=== PATIENT | female | born 1975 | race Caucasian/White ===

== ENCOUNTER → 2017-10-07 | Outpatient (REF) ==
[~2017-10-07] MED LIST: COLA100C5 PO; IBUP60TA PO; PERCOCET PO; VITAPRTA PO
[2017-10-07 13:53] LABS: SYNOVIAL FLUID COLOR YELLOW (YELLOW)
[2017-10-07 17:15] LABS: BF MONONUCLEAR CELL % 17.6 % (0-0); BF POLYMORPHONUCLEAR CELL % 82.4 % (0-0); RBC BODY FLUID 5 10^3/uL (<2); WBC BODY FLUID 6897 /uL (0-10)
[2017-10-07 17:16] LABS: BF DIFF IF INDICATED? YES (NO)
[2017-10-07 17:19] LABS: CRYSTALS, BODY FLUID NONE SEEN (NONE SEEN)
== END ==
LOC: M LAB REF 13:36
PROVIDERS: ATTEND Psychiatry & Neurology Neurology
DX: M25.561 Pain in right knee (principal)

== ENCOUNTER → 2017-11-20 | Outpatient (REF) ==
[2017-11-20 12:43] LABS: CRYSTALS, BODY FLUID NONE SEEN (NONE SEEN)
[2017-11-20 13:24] LABS: WBC BODY FLUID 15533 /uL (0-10)
[2017-11-20 13:25] LABS: APPEARANCE, BODY FLUID CLOUDY (CLEAR); BF DIFF IF INDICATED? YES (NO); BF MONONUCLEAR CELL % 23.6 % (0-0); BF POLYMORPHONUCLEAR CELL % 76.4 % (0-0); RBC BODY FLUID 40 10^3/uL (<2); SYNOVIAL FLUID COLOR RED (YELLOW)
== END ==
LOC: M LAB REF 12:01
DX: M65.9 Synovitis and tenosynovitis, unspecified (principal)

== ENCOUNTER → 2018-03-26 | Outpatient (CLI) | payer OTHER ==
[~2018-03-26] MED LIST changes: -COLA100C5 PO; -IBUP60TA PO; -PERCOCET PO; +PROHANCE 279.3MG/ML 15ML VIAL (A9576) As Ordered; -VITAPRTA PO
== END ==
LOC: M RAD 07:11
DX: M12.261 Villonodular synovitis (pigmented), right knee (principal)
CPT/HCPCS: A9576